=== PATIENT | female | born 1985 | race African-American/Black ===

== ENCOUNTER 2017-09-30 20:38 | Emergency (ER) | payer SELFPAY ==
[~2017-09-30] VITALS: Ht 160 cm; Wt 70.5 kg
[2017-09-30 21:15] VITALS: BP 142/88
== END 2017-09-30 21:49 | disposition home or self-care (01) ==
LOC: EMS 20:40
DX: K02.9 Dental caries, unspecified (principal); R03.0 Elevated blood-pressure reading, without diagnosis of hypertension
CPT/HCPCS: 99283